=== PATIENT | male | born 1940 | race African-American/Black ===

== ENCOUNTER 2018-03-30 17:06 | Emergency (ER) | payer MEDICARE, OTHER ==
[~2018-03-30] VITALS: Ht 177.8 cm; Wt 91.0 kg
[~2018-03-30 17:06] MED LIST: NABUMETONE
[2018-03-30] MEDS ORDERED: IBUPROFEN 400MG TABLET PO ONE (18:30)
[2018-03-30 20:28] LABS: BASOPHILS % 0.4 % (0.0-2.0); EOSINOPHILS % 2.5 % (0.0-5.0); HEMATOCRIT. 41.3 % (42.0-52.0); HEMOGLOBIN. 13.3 g/dL (14.0-18.0); LYMPHOCYTES % 20.9 % (20.0-50.0); MEAN CORPUSCULAR HEMOGLOBIN 28.6 pg (28.0-32.0); MEAN CORPUSCULAR VOLUME 88.8 fL (80.0-94.0); MEAN PLATELET VOLUME 7.5 fl (7.4-10.4); MONOCYTES % 10.5 % (2.0-8.0); NEUTROPHILS % 65.7 % (40.0-76.0); PLATELET 425 x1000/uL (130-400); RED BLOOD CELL COUNT 4.65 mill/uL (4.7-6.1); RED CELL DISTRIBUTION WIDTH 13.1 % (11.6-14.6)
[2018-03-30 20:31] LABS: CHLORIDE 101 mEq/L (98-107)
[2018-03-30 21:35] VITALS: BP 160/87
== END 2018-03-30 21:35 | disposition home or self-care (01) ==
LOC: ER 20:05
DX: M19.90 Unspecified osteoarthritis, unspecified site (principal); M54.30 Sciatica, unspecified side
CPT/HCPCS: 36415; 73110; 73130; 73610; 80053; 84550; 85025; 85610; 99285